=== PATIENT | male | born 1970 | race Caucasian/White ===

== ENCOUNTER 2017-12-17 09:15 | Day surgery (SDC) | payer OTHER ==
[2017-12-16 10:51] VITALS: BMI 25.2
[2017-12-17] MEDS ORDERED: oxyCODONE HCL 10 MG SUSTAINED ACTING TABLET PO STA (10:28)
[2017-12-17] MEDS ORDERED: methylPREDNISolone ACET (DEPO) 40 MG/1 ML VIAL ONE (11:26)
[2017-12-17] MEDS ORDERED: LIDOCAINE 1%/EPI 1:100000 (20 ML MULTI DOSE VIAL) ONE (11:26)
[2017-12-17] MEDS ORDERED: GUM MASTIC/STORAX/MSAL/ALCOHOL 1 DRP DROPSBTL MC ONE (11:26)
[2017-12-17] MEDS ORDERED: THROMBIN (BOVINE) 5,000 UNIT VIAL TP ONE (11:26)
--- NOTE | 2017-12-17 11:26 | HP ---
History & Physical Update - History History: No Change - Physical Physical: No Change - Assessment Assessment: No Change - Plan Plan: No Change (Initial H&P is in his paper chart. No new complaints or medications.)
[2017-12-17] MEDS ORDERED: DEXAMETHASONE SOD PHOSPHATE/PF 10 MG/ML SDV ONE (12:22)
[2017-12-17] MEDS ORDERED: MIDAZOLAM HCL 2 MG/2 ML SINGLE DOSE VIAL ONE ×3 (12:22→14:32)
[2017-12-17] MEDS ORDERED: BUPIVACAINE HCL/PF (5 MG/ML) 30 ML VIAL IJ ONE (12:22)
[2017-12-17] MEDS ORDERED: ceFAZolin SODIUM 1 GM VIAL ONE (13:40)
--- NOTE | 2017-12-17 15:12 | OP ---
Operative Note - Note: Operative Date: 12/17/17 Pre-Operative Diagnosis: Spinal stenosis L4/5 with radiculopathy Operation: Bilateral laminectomy L4/5 with discectomy Post-Operative Diagnosis: Same as Pre-op Surgeon: Roland Barakat House Manager: Jose Hairston Anesthesiologist/EXPERIMENTAL ASSEMBLER: Everett Horton ([facility]) Anesthesia: Spinal Specimens Removed: L4/5 disc Estimated Blood Loss (mls): 20 Fluid Volume Replaced (mls): 850 Operative Report Dictated: Yes
--- NOTE | 2017-12-17 15:15 | SURG ---
Surgery Model [employer] Greeter Note Model Home [employer] Greeter: Jose Hairston PA-C Date of Service: 12/17/17 Diagnosis: Bilateral laminectomy L4/5 with discectomy I was present for the entirety of the operative procedure. For further detail, please refer to operative report. Visit type - Case Type Case Type: Scheduled Admission - New patient This patient is new to me today: Yes Date on this admission: 12/17/17
[2017-12-17] MEDS ORDERED: oxyCODONE HCL 5 MG TABLET PO PRN (15:51)
[2017-12-17] MEDS ORDERED: ONDANSETRON 4 MG/2 ML VIAL IVPUSH PRN (15:51)
[2017-12-17] MEDS ORDERED: LACTATED RINGERS SOLUTION 1,000 ML IV SCH (16:00)
--- NOTE | 2017-12-17 16:13 | OP ---
DATE OF OPERATION: 12/17/2017 PREOPERATIVE DIAGNOSIS: Spinal stenosis, L4-5. POSTOPERATIVE DIAGNOSIS: Spinal stenosis, L4-5. PROCEDURE PERFORMED: Laminectomy, L4-5. SURGEON: Roland Barakat M.D. DIRECTOR OF TAX SERVICES: Brayan Thibodeaux ESTIMATED BLOOD LOSS: 50 mL INTRAVENOUS FLUIDS: Per anesthesia. ANESTHESIA: Spinal/TLIP. COMPLICATIONS: There were none. DISPOSITION: Patient brought to the PACU in stable condition. INDICATION FOR SURGERY: The patient is a 47-year-old gentleman who has been suffering from pain from his back down his legs. X-rays and MRI were completed, which noted he has spinal stenosis at L4-5. He had gone through an exhaustive course of treatment for this which included medications, physical therapy, as well as injections. Unfortunately, the pain continued to persist in spite of all this. At this point, risks, benefits, and alternatives were discussed and the patient consented to surgery. OPERATIVE NOTE: Patient is brought to the operating room by the anesthesia staff. After appropriate patient identification is performed, spinal anesthesia was given along with the TLIP block. The patient was able to position himself prone onto the Thomas frame with all areas of bony prominences well padded at this time. Two needles were placed into his back to christen off the L4-5 segment, and x-ray is taken to confirm this is correct. Marion were removed, and 10 mL of lidocaine with epinephrine was injected into his back at this time. His back was prepped and draped in a sterile manner. At timeout was completed. An incision was made from the top of L4 down to the bottom of L5. Dissection was carried down to the fascia. Fascia was opened at this time, and appropriate retractors were then placed in. Then a spinal needle was placed onto the L4 lamina to christen off the 4-5 level. An x-ray was taken to confirm this was correct. The needle was removed, and microscope was brought in. The interspinous ligament at L4-5 was removed. A portion of the L4-5 lamina were removed. The segment identified, it was removed. A complete decompression was performed such the L5 nerve root appeared to be well decompressed. The nerve root was mobilized medially. Dyskinesia was noted. It was removed at this time. By the end of the procedure the L5 nerve root appeared to be well decompressed bilaterally. Steroids were placed over the nerve root, Floseal was placed over that. The fascia was closed with a number 1 Vicryl suture. The subcutaneous tissue was closed with 2-0 Vicryl suture. Skin was closed with 3-0 Monocryl suture. Dermabond was applied. Steri-Strips were applied. Sterile dressing was applied. Patient was placed supine on OR bed, and brought to the PACU in stable condition. Beatriz FORBES/[id number]
[2017-12-17 17:30] VITALS: PULSE 112
[2017-12-17 18:19] VITALS: BP 138/84; TEMP 98.5
--- NOTE | 2017-12-21 11:19 | PATH ---
Surgical Pathology Report Patient Name: JASKARAN ARGUETA [facility]. Rec. #: [id number] /Age/Gender: 1970 (Age: 47) / M Account: [id number] Location: REPLACED BY [facility] Taken: 12/17/2017 Received: 12/17/2017 Reported: 12/21/2017 Physicians: Roland Barakat M.D. Specimen(s) Received L4-L5 DISC Clinical History Spinal stenosis Final Diagnosis INTERVERTEBRAL DISC, L4-5, PARTIAL EXCISION: PORTIONS OF INTERVERTEBRAL DISC. Electronically Signed Mike Davis M.D. Gross Description Received in formalin labelled "L4-L5 disc" is a 2.5 x 2.5 x 0.5 cm aggregate of fan fibrocartilaginous tissue fragments. Totally submitted in one cassette. [facility]/12/18/2017 [facility]/12/18/2017
== END 2017-12-17 18:00 | disposition home or self-care (01) ==
LOC: FASU 09:15
PROVIDERS: ATTEND Orthopaedic Surgery Orthopaedic Surgery of the Spine
PROC: 01NB0ZZ Release Lumbar Nerve, Open Approach (ICD-10-PCS; principal; 2017-12-17 11:15)
DX: M48.061 Spinal stenosis, lumbar region without neurogenic claudication (principal)
CPT/HCPCS: 88304-TC